=== PATIENT | female | born 1990 | race Asian ===

== ENCOUNTER 2023-01-05 18:18 | Emergency (ER) | payer OTHER, SELFPAY ==
[2023-01-05 18:29] VITALS: BP 144/89; PULSE 97; RESP 17; TEMP 37.1; O2SAT 100; BMI 28.1
--- NOTE | 2023-01-05 18:32 | DI.US.S_ITS ---
PROCEDURE: US PELVIC COMPLETE INDICATIONS: BLEEDING, POSITIVE UHCG. TECHNIQUE: Real-time scanning was performed of the pelvic organs, with image documentation. Additional endovaginal scanning was necessary due to incomplete visualization of the adnexal and endometrial structures by transabdominal scanning. COMPARISON: None. FINDINGS: Uterus: Uterus is anteverted and normal in size at 9.1 x 4.0 x 4.7 cm. The myometrium is homogeneous. The endometrium measures 17 mm combined thickness. Ovaries: The right ovary measures 3.9 x 2.4 x 2.9 cm, with a calculated ovarian volume of 14.1 cc. The left ovary measures 3.5 x 2.1 x 2.4 cm, with a calculated ovarian volume of 9.3 cc. The ovaries have a normal sonographic appearance. Less than 12 follicles can be seen in each ovary. No adnexal masses are seen. Other: No pathologic free abdominal or pelvic fluid. Trace free fluid in the cul-de-sac. IMPRESSION: Mild prominence of the endometrium. However, no visualized intrauterine or extrauterine gestational sac or pole. Recommend correlation with hCG levels and interval imaging follow-up as indicated. We strive to produce accurate, complete, and clear reports of imaging services. To assist us in improving patient care, this report was composed using standard report templates and voice recognition software. Therefore, it may contain abnormal punctuation, insertions and/or omissions. Occasional wrong-word or sound-alike substitutions may occur. Though we review the report and make efforts to correct it, we do recommend that the report be read carefully in proper context to recognize any text inaccuracies. Dictated by: Mireya Mckeon M.D. on 01/05/2023 at 19:13 Approved by: Mireya Mckeon M.D. on 01/05/2023 at 19:14
[2023-01-05 19:47] LABS: Add Manual Diff / Slide Review NO; Basophils Absolute Auto 0 /uL (0-100); Basophils Percent Auto 0.3 % (0-2); Eosinophils Absolute Auto 0 /uL (0-450); Eosinophils Percent Auto 0.4 % (2-4); Hematocrit 42.5 % (36-46); Hemoglobin 14.3 g/dL (12.0-16.0); Lymphocytes Absolute Auto 1100 /uL (1100-4500); Lymphocytes Percent Auto 21.3 % (25-40); Mean Corpuscular HGB Conc 33.7 % (30-36); Mean Corpuscular Hemoglobin 30.9 PG (26-34); Mean Corpuscular Volume 91.7 fL (80-100); Monocytes Absolute Auto 700 /uL (0-900); Monocytes Percent Auto 13.7 % (3-14); Neutrophils Absolute Auto 3300 /uL (1500-7000); Neutrophils Percent Auto 64.3 % (50-75); Platelet Count 196 X10^3/uL (150-400); Red Blood Cell Count 4.64 X10^6/uL (4.0-5.2); Red Cell Distribution Width 13.3 % (11.6-14.8); White Blood Cell Count 5.2 X10^3/uL (4.5-11.0)
[2023-01-05 19:51] LABS: Alanine Aminotransferase 19 IU/L (<35); Albumin 4.2 g/dL (3.5-5.0); Albumin Globulin Ratio 1.1 (1.0-2.8); Alkaline Phosphatase 50 U/L (38-126); Aspartate Aminotransferase 23 IU/L (14-36); BUN Creatinine Ratio 13.7 (6-22); Bilirubin Total 0.4 mg/dL (0.2-1.3); Blood Urea Nitrogen 10 mg/dL (7-17); Calcium 8.5 mg/dL (8.4-10.2); Carbon Dioxide 25 mmol/L (22-32); Chloride 100 mmol/L (98-107); Estimated Glomerular Filt Rate > 60 mL/min (>60); Globulin 3.9 g/dL (1.7-4.1); Glucose 88 mg/dL (70-100); HEMOLYSIS 35 (0-50); Potassium 4.2 mmol/L (3.4-5.1); Sodium 133 mmol/L (137-145); Total Protein 8.1 g/dL (6.3-8.2)
[2023-01-05 20:08] LABS: HCG Quantitative /Beta subunit 508.9 mIU/mL
--- NOTE | 2023-01-06 00:06 | ED_ITS ---
HPI - General Chief complaint: Vaginal Bleeding Stated complaint: just found out she is , heavy bleeding Time Seen by Provider: 01/06/23 00:06 Source: patient Mode of arrival: Ambulatory Limitations: no limitations History of Present Illness HPI Narrative: Patient healthy 32-year-old female who presents today with abdominal cramping vaginal bleeding and she found out she was yesterday. She is . She reports that she did not think that she was able to get . Her last menstrual cycle was December 01. Today she is had severe cramping and some bleeding. She reports that she feels dizzy every morning dizzy denies any fever or chills. She has some nausea no vomiting. No chest pain. Related Data Allergies Allergy/AdvReac Type Severity Reaction Status Date / Time No Known Drug Allergies Allergy Verified 01/05/23 18:29 Review of Systems Review of Systems ROS Unobtainable: All systems reviewed & are unremarkable except as noted in HPI and below Exam Initial Vital Signs Initial Vital Signs: Vital Signs Temperature 98.8 F 01/05/23 18:29 Pulse Rate 97 H 01/05/23 18:29 Respiratory Rate 17 01/05/23 18:29 Blood Pressure 144/89 H 01/05/23 18:29 Pulse Oximetry 100 01/05/23 18:29 Oxygen Delivery Method Room Air 01/05/23 18:29 GENERAL: Alert pleasant 5-year-old female and in no acute distress. HEENT: Head atraumatic,EOMI, pupils reactive, face symmetric, moist mucous membranes CARDIOVASCULAR: Regular rate and rhythm without murmurs, rubs or gallops. RESPIRATORY: Breath sounds equal bilaterally, no wheezes rales or rhonchi. ABDOMEN: Soft, nontender. Normoactive bowel sounds all 4 quadrants. No guarding or rebound. : No CVA tenderness EXTREMITIES: Normal range of motion, no clubbing or edema. Neurovascularly intact NEUROLOGICAL: Alert and oriented x4. SKIN: Warm, dry, no laceration, no petechiae, no rashes or lesions. Course Orders Ordered: ED Orders 01/05/23 18:32 US pelvic complete Stat 01/05/23 19:21 Complete Blood Count AUTO DIFF Stat Comprehensive Metabolic Panel Stat HCG Quantitative /Beta subunit Stat Type and Screen Stat Vital Signs Vital signs: Vital Signs - 8 hr 01/05/23 18:29 01/06/23 00:30 Temperature 98.8 F Pulse Rate 97 H 93 H Respiratory Rate 17 18 Blood Pressure 144/89 H 116/79 Pulse Oximetry 100 97 Oxygen Delivery Method Room Air Room Air MDM - OB/Uterine Contractions Lab Data 01/05/23 19:21 01/05/23 19:21 Labs: Lab Results 01/05/23 01/05/23 01/05/23 Range/Units 19:21 19:21 19:21 WBC 5.2 (4.5-11.0) X10^3/uL RBC 4.64 (4.0-5.2) X10^6/uL Hgb 14.3 (12.0-16.0) g/dL Hct 42.5 (36-46) % MCV 91.7 (80-100) fL MCH 30.9 (26-34) PG MCHC 33.7 (30-36) % RDW 13.3 (11.6-14.8) % Plt Count 196 (150-400) X10^3/uL Neut % (Auto) 64.3 (50-75) % Lymph % (Auto) 21.3 L (25-40) % [place] % (Auto) 13.7 (3-14) % Eos % (Auto) 0.4 L (2-4) % Baso % (Auto) 0.3 (0-2) % Neut # (Auto) 3300 (5183-7412) /uL Lymph # (Auto) 1100 (6220-8486) /uL [place] # (Auto) 700 (0-900) /uL Eos # (Auto) 0 (0-450) /uL Baso # (Auto) 0 (0-100) /uL Sodium 133 L (137-145) mmol/L Potassium 4.2 (3.4-5.1) mmol/L Chloride 100 (98-107) mmol/L Carbon Dioxide 25 (22-32) mmol/L BUN 10 (7-17) mg/dL Creatinine 0.73 (0.52-1.04) mg/dL Estimated GFR > 60 (>60) mL/min BUN/Creatinine Ratio 13.7 (6-22) Glucose 88 (70-100) mg/dL Calcium 8.5 (8.4-10.2) mg/dL Total Bilirubin 0.4 (0.2-1.3) mg/dL AST 23 (14-36) IU/L ALT 19 (<35) IU/L Alkaline Phosphatase 50 (38-126) U/L Total Protein 8.1 (6.3-8.2) g/dL Albumin 4.2 (3.5-5.0) g/dL Globulin 3.9 (1.7-4.1) g/dL Albumin/Globulin Ratio 1.1 (1.0-2.8) HCG, Quant 508.9 mIU/mL Blood Type A Positive Antibody Screen Negative Point of Care Testing Test Results Positive Urine Dip Bedside Urine Glucose Negative Bedside Urine Bilirubin - Negative Bedside Urine Ketone - Negative Urine Specific [place] 1.020 Bedside Urine Occult Blood +/- Bedside Urine pH 6.0 Bedside Urine Protein - Negative Bedside Urine Urobilinogen - Negative Bedside Urine Nitrite - Negative Bedside Urine Leukocytes - Negative Esterase Imaging Data US - OB: Radiologist's Impression: PROCEDURE:? US PELVIC COMPLETE ? INDICATIONS:? BLEEDING, POSITIVE UHCG. ? TECHNIQUE:? Real-time scanning was performed of the pelvic organs, with image documentation.? Additional endovaginal scanning was necessary due to incomplete visualization of the adnexal and endometrial structures by transabdominal scanning.? ? COMPARISON:? None. ? FINDINGS:? ?? Uterus:? Uterus is anteverted and normal in size at 9.1 x 4.0 x 4.7 cm. The myometrium is homogeneous. ? The endometrium measures 17 mm combined thickness.? ? Ovaries:? The right ovary measures 3.9 x 2.4 x 2.9 cm, with a calculated ovarian volume of 14.1 cc. The left ovary measures 3.5 x 2.1 x 2.4 cm, with a calculated ovarian volume of 9.3 cc. The ovaries have a normal sonographic appearance. Less than 12 follicles can be seen in each ovary.? No adnexal masses are seen. ? Other:? No pathologic free abdominal or pelvic fluid.? Trace free fluid in the cul-de-sac. ? ? IMPRESSION:? ? Mild prominence of the endometrium.? However, no visualized intrauterine or extrauterine gestational sac or pole.? Recommend correlation with hCG levels and inter ky imaging follow-up as indicated. ? ? ? We strive to produce accurate, complete, and clear reports of imaging services. To assist us in improving patient care, this report was composed using standard report templates and voice recognition software. Therefore, it may contain abnormal punctuation, insertions and/or omissions. Occasional wrong-word or sound-alike substitutions may occur. Though we review the report and make efforts to correct it, we do recommend that the report be read carefully in proper context to recognize any text inaccuracies. ? ? Dictated by: Mireya Mckeon M.D. on 01/05/2023 at 19:13 ? ? MDM Narrative Medical decision making narrative: Patient well-appearing 32-year-old female who presents today with early see and vaginal bleeding. HCG today is 508 no evidence of an IUP but no evidence of an ectopic. Not having severe pain. Possible early miscarriage versus early . Recommend 48 hour repeat hCG. Blood work is overall reassuring she is a positive no evidence of UTI. She is given OB phone numbers also if unable to get repeat blood work outside may return to ED for repeat hCG. Discharge Plan Departure Patient Disposition: Home Clinical Impression: Threatened Instructions: DI for Vaginal Bleeding During Activity Restrictions/Additional Instructions: HCG 508.9 Blood type A positive *You have been diagnosed with bleeding while *What to do: At this time you do need a repeat hCG and 48 hours *Continue to take medications as directed vitamins daily Tylenol 1000 mg every 6 hours if needed for [id number] pain *Follow up with your primary care provider in 2-3 days or call [phone] Please call OB office for repeat blood work *Return to ER if you should have increased cramping bleeding pain passing out [or] any new, worsening or concerning symptoms Referrals: Tish Byers MD [Physician] - Kimberly Waters MD [Physician] - Pravin Valenzuela MD [Physician] - Stand Alone Forms: Patient Portal/API
[2023-01-06 00:30] VITALS: BP 116/79; PULSE 93; RESP 18; O2SAT 97
== END 2023-01-06 00:30 | disposition home or self-care (01) ==
PROVIDERS: Emergency Provider Emergency Medicine
DX: O20.0 Threatened abortion (principal)
CPT/HCPCS: 36415; 76830; 76856; 80053; 81003; 81025; 84702; 85025; 86850; 86900; 86901; 93976; 99282; 99284

== ENCOUNTER → 2023-01-08 07:58 | Outpatient (CLI) | payer OTHER, SELFPAY ==
[2023-01-08 09:35] LABS: Urine Chlamydia NOT DETECTED; Urine N gonorrhoeae NOT DETECTED
== END ==
PROVIDERS: Visit Provider Physician Assistant
DX: N39.0 Urinary tract infection, site not specified (principal); N89.8 Other specified noninflammatory disorders of vagina
CPT/HCPCS: 87077; 87086; 87147; 87252; 87491; 87591

== ENCOUNTER → 2023-01-08 09:02 | Outpatient (CLI) | payer OTHER, SELFPAY ==
[2023-01-09 12:12] LABS: HSV 2 IGG AB < 0.91 index (0.00-0.90); HSV1IGG < 0.91 index (0.00-0.90)
== END ==
PROVIDERS: Referring Provider Urology; Visit Provider Physician Assistant
DX: N76.6 Ulceration of vulva (principal); N39.0 Urinary tract infection, site not specified; N89.8 Other specified noninflammatory disorders of vagina
CPT/HCPCS: 36415; 86695; 86696; 87077; 87086; 87147; 87252; 87491; 87591

== ENCOUNTER → 2023-01-17 16:27 | Outpatient (CLI) | payer OTHER, SELFPAY ==
[2023-01-17 18:37] LABS: HCG Quantitative /Beta subunit 14314 mIU/mL
== END ==
PROVIDERS: Referring Provider Obstetrics & Gynecology; Visit Provider Obstetrics & Gynecology
DX: N89.8 Other specified noninflammatory disorders of vagina (principal)
CPT/HCPCS: 36415; 84702

== ENCOUNTER → 2023-02-11 12:44 | Outpatient (CLI) | payer OTHER, SELFPAY ==
[2023-02-11 13:31] LABS: Add Manual Diff / Slide Review NO; Basophils Absolute Auto 0 /uL (0-100); Basophils Percent Auto 0.4 % (0-2); Eosinophils Absolute Auto 300 /uL (0-450); Eosinophils Percent Auto 2.7 % (2-4); Hematocrit 36.4 % (36-46); Hemoglobin 12.4 g/dL (12.0-16.0); Lymphocytes Absolute Auto 1600 /uL (1100-4500); Lymphocytes Percent Auto 17.7 % (25-40); Mean Corpuscular Hemoglobin 31.1 PG (26-34); Mean Corpuscular Volume 91.4 fL (80-100); Monocytes Absolute Auto 600 /uL (0-900); Monocytes Percent Auto 6.3 % (3-14); Neutrophils Absolute Auto 6700 /uL (1500-7000); Neutrophils Percent Auto 72.9 % (50-75); Platelet Count 257 X10^3/uL (150-400); Red Blood Cell Count 3.98 X10^6/uL (4.0-5.2); White Blood Cell Count 9.2 X10^3/uL (4.5-11.0)
[2023-02-12 03:34] LABS: RPR Screen Non Reactive (Non Reactive)
[2023-02-12 08:09] LABS: Varicella IgG Antibody 2490 index (Immune >165)
[2023-02-15 15:14] LABS: Hepatitis B Surface Antigen NEGATIVE s/c (NEGATIVE); Rubella Antibody IgG 3.4 IU/mL (>15)
[2023-02-15 15:28] LABS: HIV 1 & 2 Ab/Ag 4th Gen Combo NEGATIVE (NEGATIVE); Hep C Virus Ab w/Reflex Quant NEGATIVE s/c (NEGATIVE)
== END ==
PROVIDERS: Referring Provider Family Medicine; Visit Provider Family Medicine
DX: Z34.01 Encounter for supervision of normal first pregnancy, first trimester (principal)
CPT/HCPCS: 36415; 80055; 86787; 86803; 86850; 86900; 86901; 87389

== ENCOUNTER → 2023-04-25 16:25 | Outpatient (CLI) | payer OTHER, SELFPAY ==
[2023-04-28 20:58] LABS: AFP, Serum 40.8 ng/mL (.); Estriol, Free 2.74 ng/mL (.); Inhibin A, Dimeric 127.18 pg/mL (.); Inhibin A, MoM 0.89 (.); Maternal Ethnicity Other (.); Maternal Weight 202 lbs (.); Number of Fetuses No (.); OSBR Risk 1 IN 10000 (.); Results Report (.); Test Results *Screen Negative* (.); hCG, MoM 0.35 (.); hCG, Serum 9201 mIU/mL (.)
== END ==
PROVIDERS: PCP Family Medicine; Referring Provider Family Medicine; Visit Provider Family Medicine
DX: Z34.01 Encounter for supervision of normal first pregnancy, first trimester (principal)
CPT/HCPCS: 36415; 82105; 82677; 84702; 86336

== ENCOUNTER → 2023-05-03 16:15 | Outpatient (CLI) | payer OTHER, SELFPAY ==
--- NOTE | 2023-05-03 16:16 | DI.US.S_ITS ---
PROCEDURE: US OB >= 14 WEEKS FETUS INDICATIONS: ANATOMY SCAN OUTSIDE/PRIOR DATING DATA: LMP-based estimated date of delivery (SANDRA): 09/07/2023. First dating scan (date and location): 02/11/2023. Estimated date of delivery (SANDRA) from first dating scan: 09/16/2023. The calculations are made using the ultrasound SANDRA of 09/16/2023. TECHNIQUE: Real-time scanning was performed of the fetus, with image documentation and biometric measurements. COMPARISON: None. FINDINGS: General: A single living intrauterine gestation is present. Presentation: Vertex. Placenta: Placental position is anterior , without previa. Amniotic fluid index: 9.9 cm, normal range is 5-24 cm. Single deepest vertical pocket is 3.4 cm. heart rate: 149 beats per minute. Maternal cervical canal: 4.1 cm long. Normal lower limit is 2.5 cm. biometrics: Biparietal diameter: 5.1 cm. 21 weeks 3 days Head circumference: 18.7 cm. 21 weeks 0 days. Abdominal circumference: 15.9 cm. 21 weeks 0 days. Femur length: 3.6 cm. 21 weeks 2 days. Clinically estimated gestational age: 20 weeks 4 days Composite gestational age from present scan: 21 weeks 1 day Estimated weight and percentile: 399 g. 74th percentile. Anatomic survey: Neuro: Ventricles are non-dilated at less than 10 mm. Cisterna magna is normal at 3-11 mm. Cerebellum is normal in size and morphology. Nuchal skin fold: Normal at less than 6 mm between 14-21 weeks gestational age. Face: Nose and lips, facial profile are normal. Spine: No evidence for spina bifida. Heart: 4-chambered heart is present, with normal ventricular outflow tracts. Diaphragm: Diaphragm is intact. Stomach: Left-sided stomach is present. Kidneys: No hydronephrosis. Normal is less than 5 mm in 2nd trimester, less than 7 mm in 3rd trimester. Cord: 3-vessel cord has orthotopic insertion. Bladder: Normal in size. Extremities: All 4 extremities identified. IMPRESSION: 1. Single live intrauterine with a clinically estimated gestational age of 20 weeks 4 days by LMP and composite gestational age from current ultrasound 21 weeks 1 day. 2. Normal anatomy. 3. Normal MIRANDA. We strive to produce accurate, complete, and clear reports of imaging services. To assist us in improving patient care, this report was composed using standard report templates and voice recognition software. Therefore, it may contain abnormal punctuation, insertions and/or omissions. Occasional wrong-word or sound-alike substitutions may occur. Though we review the report and make efforts to correct it, we do recommend that the report be read carefully in proper context to recognize any text inaccuracies. Dictated by: Roberth Pearson M.D. on 05/04/2023 at 9:25 Approved by: Roberth Pearson M.D. on 05/04/2023 at 9:28
== END ==
PROVIDERS: PCP Family Medicine; Referring Provider Family Medicine; Visit Provider Family Medicine
DX: Z34.92 Encounter for supervision of normal pregnancy, unspecified, second trimester (principal); Z3A.21 21 weeks gestation of pregnancy
CPT/HCPCS: 76811

== ENCOUNTER → 2023-06-27 13:31 | Outpatient (CLI) | payer OTHER, SELFPAY ==
[2023-06-27 15:44] LABS: Add Manual Diff / Slide Review NO; Basophils Absolute Auto 0 /uL (0-100); Basophils Percent Auto 0.3 % (0-2); Eosinophils Absolute Auto 200 /uL (0-450); Eosinophils Percent Auto 1.7 % (2-4); Hematocrit 35.2 % (36-46); Hemoglobin 11.8 g/dL (12.0-16.0); Lymphocytes Absolute Auto 1500 /uL (1100-4500); Mean Corpuscular HGB Conc 33.5 % (30-36); Mean Corpuscular Hemoglobin 30.3 PG (26-34); Mean Corpuscular Volume 90.4 fL (80-100); Monocytes Absolute Auto 700 /uL (0-900); Monocytes Percent Auto 6.3 % (3-14); Neutrophils Absolute Auto 9200 /uL (1500-7000); Neutrophils Percent Auto 78.7 % (50-75); Platelet Count 228 X10^3/uL (150-400); Red Cell Distribution Width 12.8 % (11.6-14.8); White Blood Cell Count 11.7 X10^3/uL (4.5-11.0)
[2023-06-27 20:49] LABS: GTT (PREG) 1 Hour PP 50gm Dose 131 mg/dL (76-139)
== END ==
LOC: LAB 13:32
PROVIDERS: PCP Family Medicine; Referring Provider Family Medicine; Visit Provider Family Medicine
DX: Z34.92 Encounter for supervision of normal pregnancy, unspecified, second trimester (principal); Z3A.26 26 weeks gestation of pregnancy
CPT/HCPCS: 82950; 85025

== ENCOUNTER 2023-07-24 15:52 | Inpatient (IN) | payer OTHER, SELFPAY ==
[2023-07-24] MEDS: BETAMETHASONE 30 MG/5 ML MDV 12 MG IM (17:18)
[2023-07-24 17:21] LABS: Add Manual Diff / Slide Review NO; Basophils Absolute Auto 100 /uL (0-100); Basophils Percent Auto 0.8 % (0-2); Eosinophils Absolute Auto 200 /uL (0-450); Eosinophils Percent Auto 2.1 % (2-4); Hematocrit 37.7 % (36-46); Hemoglobin 12.8 g/dL (12.0-16.0); Lymphocytes Absolute Auto 2000 /uL (1100-4500); Lymphocytes Percent Auto 17.9 % (25-40); Mean Corpuscular HGB Conc 34.1 % (30-36); Mean Corpuscular Hemoglobin 30.4 PG (26-34); Mean Corpuscular Volume 89.1 fL (80-100); Monocytes Absolute Auto 1000 /uL (0-900); Monocytes Percent Auto 8.8 % (3-14); Neutrophils Absolute Auto 7800 /uL (1500-7000); Neutrophils Percent Auto 70.4 % (50-75); Platelet Count 258 X10^3/uL (150-400); Red Blood Cell Count 4.23 X10^6/uL (4.0-5.2); Red Cell Distribution Width 13.3 % (11.6-14.8)
[2023-07-24] MEDS: AMPICILLIN 2,000 MG in SODIUM CHLORIDE 0.9% 100 ML 200 MG IV (17:22)
--- NOTE | 2023-07-24 17:25 | PM.OBHP.1 ---
OB HPI Date/Time Date of admission: 07/24/23 Date Patient Seen: 07/24/23 Time Patient Seen: 16:30 History of Present Condition Chief complaint: PPROM : 1 Para: 0 Estimated Date of Delivery: 09/16/23 Estimated Gestational Age (weeks): 32w2d Narrative: Linh Ojeda is a 33 year old female at 32w2d by 9 week ultrasound here for rule out rupture of membranes. She reports leaking fluid since approx 0700 this morning, thought she was peeing herself, has filled several pads during the day. Is very concerned about her baby and wondering what she did wrong. Linh has had a normal . [facility] Medical History (Updated 07/19/23 @ 18:31 by Vargas Salcedo MD) Asthma (~2007) Chronic back pain (~2018) Chicken pox (~1995) Painful menstrual periods (~2007) Ovarian cyst (~2007) Irregular menstrual cycle (~2007) Heavy menstrual period (~2007) Bulimia Kifzk-Ryxhbdrbo-Nmfvf (WPW) syndrome (~1991) Depression (~2009) Anxiety Ovarian cancer (~2015) PCOS (polycystic ovarian syndrome) Surgical History (Updated 01/27/23 @ 08:19 by Angelita Truong RN) [place] teeth extracted Family History (Updated 01/27/23 @ 08:24 by Angelita Truong RN) Mother PCOS (polycystic ovarian syndrome) Bipolar disorder Father Hyperlipidemia Hypertension Grandfather Diabetes mellitus Grandfather Diabetes mellitus Prostate cancer Grandmother Diabetes mellitus Hyperlipidemia Hypertension Tachycardia Kidney failure Kidney transplanted Social History marital status: unmarried,living together number of children: 0 lives independently: Yes caregiver/support person: Yes housing: house pets and animals: Yes (cats and dogs, s/o managing litter box) education level: college (bachelor's degree) occupational status: employed (works from home) current occupational exposures/hazards: No josie/jew: Protestant special josie needs: No travel history: recent ([place], [place], [place]) seatbelt use: always helmet use: Yes water heater temp set < 120 deg: Yes working smoke detector in home: Yes fire extinguisher in home: Yes carbon monox detector in home: Yes firearms in home: Yes firearms unloaded and locked: Yes do you feel safe at home: Yes (answered w/ s/o present) Smoking Status: Former smoker (quit when she learned she was ) Tobacco: How many years used: 10 second hand exposure: Yes (s/o smokes) alcohol intake: former (occasionally when not ) substance use type: marijuana (not while /) during the past year weight has: decreased > 10 lbs (~40 lb loss, intentional w/ diet and exercise) well-balanced diet: daily or most days daily servings fruits/ve or more times/day (mostly vegetarian diet) caffeine: No Type(s) of exercise: walking, bicycling, swimming, weight lifting and other frequency: daily Meds Home Medications and Allergies Home Medications Medication Instructions Recorded Confirmed Type magnesium citrate 100 mg capsule 100 mg PO DAILY 01/27/23 07/22/23 History mecobalamin (vitamin B12) 500 mcg mcg PO 01/27/23 07/22/23 History chewable tablet omega-3 fatty acids-fish oil 360 1 cap PO DAILY 01/27/23 07/22/23 History mg-1,200 mg capsule (Fish Oil) vitamin-ferrous sulfate tab PO 01/27/23 07/22/23 History 27 mg iron-folic acid 0.8 mg tablet doxylamine 10 mg-pyridoxine (vit 1 tab PO BID #60 tabs 07/19/23 07/22/23 Rx B6) 10 mg tablet,delayed release (Diclegis) famotidine 20 mg tablet 20 mg PO BID PRN acid reflux #60 07/19/23 07/22/23 Rx tabs ondansetron HCl 8 mg tablet 8 mg PO Q8H PRN nausea and 07/19/23 07/22/23 Rx vomiting #30 tabs Allergies Allergy/AdvReac Type Severity Reaction Status Date / Time lactose AdvReac Mild Abdominal Verified 07/22/23 07:34 Pain siliocone Allergy Intermediate Rash Uncoded 07/22/23 07:34 Objective Labs 07/24/23 17:05 Labs: Laboratory Results - last 24 hr 07/24/23 17:05 WBC 11.0 RBC 4.23 Hgb 12.8 Hct 37.7 MCV 89.1 MCH 30.4 MCHC 34.1 RDW 13.3 Plt Count 258 Neut % (Auto) 70.4 Lymph % (Auto) 17.9 L [place] % (Auto) 8.8 Eos % (Auto) 2.1 Baso % (Auto) 0.8 Neut # (Auto) 7800 H Lymph # (Auto) 2000 [place] # (Auto) 1000 H Eos # (Auto) 200 Baso # (Auto) 100
[2023-07-24] MEDS: MAGNESIUM SULFATE 4 GM/100 ML PIGGYBACK IV (17:38)
--- NOTE | 2023-07-24 17:38 | P.HPOB_ITS ---
OB HPI Date/Time Date of admission: 07/24/23 Date Patient Seen: 07/24/23 Time Patient Seen: 16:30 History of Present Condition Chief complaint: PPROM Date of Last Menstrual Period: 12/02/23 SANDRA Calculator 2 Estimated Delivery Date Method Current WG Current Estimate 09/16/23 Manual 32w 2d Final SANDRA - KIMBERLY Other Estimates 09/07/23 LMP (Certain) 33w 4d 09/16/23 Ultrasound #1 32w 2d Estimated Gestational Age (weeks): 32w2d : 1 Para: 0 Narrative: Linh Ojeda is a 33 year old female at 32w2d by 9 week ultrasound here for rule out rupture of membranes. This was a surprise but welcome as she was told she could not conceive after ovarian cancer in her 20s. Linh reports leaking fluid since approx 0700 this morning, thought she was peeing herself, has filled several pads during the day. Is very concerned about her baby and wondering what she did wrong. Linh has had a normal with nausea, edema, back and hip pain, reflux as her only complaints. Linh had ovarian cancer treated at [facility] with a B cell regeneration treatment that avoided oophorectomy, so she still has both ovaries. care: good care, initiated at week #, number of visits (7) and pounds weight gain (43) Ultrasounds: normal 1st trimester US and normal mid trimester US (74%ile, 3VC) Obstetrical complications: none Indications Other reason(s) for admission: PPROM confirmed by amnisure and gross rupture noted when doing amnisure. Preadmission Labs Last OB Lab Results: 2 Blood Type A Positive 02/11/23 13:03 Antibody Screen Negative 02/11/23 13:03 Hematocrit 37.7 % (36-46) 07/24/23 17:05 Hemoglobin 12.8 g/dL (12.0-16.0) 07/24/23 17:05 Hepatitis B Surface Antigen Negative s/c (NEGATIVE) 02/11/23 13 :03 Hepatitis C Antibody Negative s/c (NEGATIVE) 02/11/23 13:03 Rubella Antibody 3.4 IU/mL (>15) L 02/11/23 13:03 Varicella-Zoster IgG Antibody 2490 index (Immune >165) 02/11/23 13:03 Glucose 1 Hour 131 mg/dL (76-139) 06/27/23 14:40 Evaluation Evaluation Baseline heart rate: 145 Variability: Average (6-10) (moderate) monitor accelerations: Present Monitor Decelerations: Variable Contraction Frequency (minutes): 15 (irregular and painless) Category of Tracing: Appropriate for gestational age Status: Category l Dilation (cm): 0 (Exam not performed r/to PPROM) Non-invasive Membranes Rupture Test: positive Comments: Gross rupture noted on admission [facility] Medical History Asthma (~2007) Chronic back pain (~2018) Chicken pox (~1995) Painful menstrual periods (~2007) Ovarian cyst (~2007) Irregular menstrual cycle (~2007) Heavy menstrual period (~2007) Bulimia Zflyk-Mdmgobrkk-Jzgpk (WPW) syndrome (~1991) Depression (~2009) Anxiety Ovarian cancer (~2015) PCOS (polycystic ovarian syndrome) Surgical History [place] teeth extracted Family History Mother PCOS (polycystic ovarian syndrome) Bipolar disorder Father Hyperlipidemia Hypertension Grandfather Diabetes mellitus Grandfather Diabetes mellitus Prostate cancer Grandmother Diabetes mellitus Hyperlipidemia Hypertension Tachycardia Kidney failure Kidney transplanted Social History marital status: unmarried,living together number of children: 0 lives independently: Yes caregiver/support person: Yes housing: house pets and animals: Yes (cats and dogs, s/o managing litter box) education level: college (bachelor's degree) occupational status: employed (works from home) current occupational exposures/hazards: No josie/anabaptism: Alevism special josie needs: No travel history: recent ([place], [place], [place]) seatbelt use: always helmet use: Yes water heater temp set < 120 deg: Yes working smoke detector in home: Yes fire extinguisher in home: Yes carbon monox detector in home: Yes firearms in home: Yes firearms unloaded and locked: Yes do you feel safe at home: Yes (answered w/ s/o present) Smoking Status: Former smoker (quit when she learned she was ) Tobacco: How many years used: 10 second hand exposure: Yes (s/o smokes) alcohol intake: former (occasionally when not ) substance use type: marijuana (not while /) during the past year weight has: decreased > 10 lbs (~40 lb loss, intentional w/ diet and exercise) well-balanced diet: daily or most days daily servings fruits/ve or more times/day (mostly vegetarian diet) caffeine: No Type(s) of exercise: walking, bicycling, swimming, weight lifting and other frequency: daily Meds Home Medications and Allergies Home Medications Medication Instructions Recorded Confirmed Type magnesium citrate 100 mg capsule 100 mg PO DAILY 01/27/23 07/22/23 History mecobalamin (vitamin B12) 500 mcg mcg PO 01/27/23 07/22/23 History chewable tablet omega-3 fatty acids-fish oil 360 1 cap PO DAILY 01/27/23 07/22/23 History mg-1,200 mg capsule (Fish Oil) vitamin-ferrous sulfate tab PO 01/27/23 07/22/23 History 27 mg iron-folic acid 0.8 mg tablet doxylamine 10 mg-pyridoxine (vit 1 tab PO BID #60 tabs 07/19/23 07/22/23 Rx B6) 10 mg tablet,delayed release (Diclegis) famotidine 20 mg tablet 20 mg PO BID PRN acid reflux #60 07/19/23 07/22/23 Rx tabs ondansetron HCl 8 mg tablet 8 mg PO Q8H PRN nausea and 07/19/23 07/22/23 Rx vomiting #30 tabs Allergies Allergy/AdvReac Type Severity Reaction Status Date / Time lactose AdvReac Mild Abdominal Verified 07/22/23 07:34 Pain siliocone Allergy Intermediate Rash Uncoded 07/22/23 07:34 Review of Systems Review of Systems Narrative: No concerns except as mentioned in HPI Constitutional Constitutional: Reports as per HPI Psychiatric Psychiatric: Reports anxiety (history of and current r/to situation) and Reports depression OB Exam Vital signs Blood Pressure: 131/75 Pulse Rate: 96 (SpO2 98%) Respiratory Rate: 18 Temperature: 97.9 F Resp Effort & Inspection: normal respiratory effort and able to speak in complete sentences Cardio Rate: regular rate Rhythm: regular rhythm Extremities Lower extremity: Yes normal to inspection GI Inspection: normal to inspection Amniotic Fluid: clear and other (amnisure positive) Objective Labs 07/24/23 17:05 Labs: Laboratory Results - last 24 hr 07/24/23 17:05 WBC 11.0 RBC 4.23 Hgb 12.8 Hct 37.7 MCV 89.1 MCH 30.4 MCHC 34.1 RDW 13.3 Plt Count 258 Neut % (Auto) 70.4 Lymph % (Auto) 17.9 L [place] % (Auto) 8.8 Eos % (Auto) 2.1 Baso % (Auto) 0.8 Neut # (Auto) 7800 H Lymph # (Auto) 2000 [place] # (Auto) 1000 H Eos # (Auto) 200 Baso # (Auto) 100 Assessment and Plan Assessment and Plan Assessment and Plan narrative: at 32w2d by 9 week ultrasound Premature prelabor rupture of membranes GBS positive (bacteriuria) Rh positive History of ovarian cancer PCOS History of bulimia Anxiety and depression WPW syndrome Admitted to L&D after confirmation of gross rupture with amnisure. Decision made to transfer; consultation with Dr. Justin Swenson at [facility] who agrees to accept transfer of care. He recommended/confirmed the followin. Ampicillin 2000 mg IV for GBS prophylaxis followed by 1 g azithromycin IV d/t PPROM 2. CBC with diff 3. Magnesium sulfate 4 gram bolus followed by 2 g maintenance dose 4. Betamethasone 12 mg IM given at 1718 07/24/2023. 5. RNs coordinating transfer by ALS ambulance. Reviewed plan of care with [facility], with goal of keeping her until 34 weeks. They agree with the plan to transfer to [facility] for best care, and signed consent. Will inform Dr. Salcedo.
[2023-07-24] MEDS: AZITHROMYCIN 1,000 MG in DEXTROSE 5% IN WATER 250 ML 250 MG IV (17:50)
[2023-07-24 17:53] VITALS: BP 131/75; PULSE 96; RESP 18; TEMP 36.6
--- NOTE | 2023-07-24 18:09 | PM.OBDS.1 ---
Discharge Providers Provider Date of admission: 07/24/23 15:52 Discharge Date: 07/24/23 Primary care physician: Vargas Salcedo MD Discharge provider: Cheli Bradley CNM, ARNP Summary Hospital Course Date Patient Seen: 07/24/23 Time Patient Seen: 18:20 Diagnoses: PPROM Time Spent with Patient Time attestation: Total time spent providing and/or coordinating discharge services: Objective Labs 07/24/23 17:05 Labs: Laboratory Results - last 24 hr 07/24/23 17:05 WBC 11.0 RBC 4.23 Hgb 12.8 Hct 37.7 MCV 89.1 MCH 30.4 MCHC 34.1 RDW 13.3 Plt Count 258 Neut % (Auto) 70.4 Lymph % (Auto) 17.9 L [place] % (Auto) 8.8 Eos % (Auto) 2.1 Baso % (Auto) 0.8 Neut # (Auto) 7800 H Lymph # (Auto) 2000 [place] # (Auto) 1000 H Eos # (Auto) 200 Baso # (Auto) 100 Exam Vital Signs (past 8 hours): - 07/24/23 17:53 Temperature 97.9 F Pulse Rate 96 H Respiratory Rate 18 Blood Pressure 131/75 Discharge Plan Discharge Plan Patient Disposition: Released, Other Other facility: [facility], sent by ambulance due to need for higher level of care Under care of provider: Transfer to Justin Swenson MD Provider Discharge Comment: Discharged on maintenance dose of magnesium sulfate (2g) as tocolysis Discharge orders & Medications Discharge Orders: Discharge (Order); Ordered 07/24/23 Ordered By: Cheli Bradley Prescriptions: No Action famotidine 20 mg tablet 20 mg PO BID PRN (Reason: acid reflux) Qty: 60 2RF ondansetron HCl 8 mg tablet 8 mg PO Q8H PRN (Reason: nausea and vomiting) Qty: 30 0RF doxylamine-pyridoxine (vit B6) [Diclegis] 10-10 mg tablet,delayed release (DR/EC) 1 tab PO BID Qty: 60 0RF vit-ferrous sulfat-FA 27 mg iron- 0.8 mg tablet PO magnesium citrate 100 mg capsule 100 mg PO DAILY omega-3 fatty acids-fish oil [Fish Oil] 360-1,200 mg capsule 1 cap PO DAILY mecobalamin (vitamin B12) 500 mcg tablet,chewable PO Follow up/Referrals: Vargas Salcedo MD [Primary Care Provider] - Discharge Data Primary Care Provider: Vargas Salcedo
[2023-07-24] MEDS: MAGNESIUM SULFATE 20 GM/500 ML IV.SOLN IV (18:18)
== END 2023-07-24 18:40 | disposition home or self-care (01) | DRG 833 ==
PROVIDERS: Admitting Provider Advanced Practice Midwife; PCP Family Medicine; Referring Provider Family Medicine; Visit Provider Advanced Practice Midwife
DX: O42.913 Preterm premature rupture of membranes, unspecified as to length of time between rupture and onset of labor, third trimester (principal); Z3A.32 32 weeks gestation of pregnancy
CPT/HCPCS: 59050; 84112; 85025; 96360; 96372; G0379; J0290; J0702; J3475